=== PATIENT | female | born 1945 | race Caucasian/White ===

== ENCOUNTER → 2017-09-17 | Outpatient (CLI) | payer MEDICARE, BC ==
[~2017-09-17] MED LIST: ASPI-781 PO; PARO40TA79 PO; SIMV20TA2 PO; ZOLP10TA PO
--- NOTE | 2017-09-18 04:26 | HKNOTE ---
DATE OF SERVICE: 09/17/2017 MAIN COMPLAINT: Pain in the left hip. HISTORY OF MAIN COMPLAINT: The patient is a 72-year-old female who underwent a right total hip repl acement performed by me 10 years ago. She has had absolutely no problem with the hip, it feels comp letely normal. She is totally delighted with the results of the surgery. She underwent a left total hip replacement on 11/18/2015. Everything was going along perfectly well until she developed pain in the hip spontaneously about 2 months ago. She has not had any recent h istory of infection. 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 She saw Dr. Wen and Dr. Gela maravilla. There was a suggestion that she might need surgery to her cervical spine, which she declined . The pain in the left hip is localized over the left greater trochanter. There is no radiation to th e groin. She gets pain with every step that she takes. She cannot lie on her left side and she can not lie on her right side without a pillow between her legs. She has difficulty with stairs. She g ets pain with every step that she takes. PHYSICAL EXAMINATION GENERAL: The patient is fit looking 72-year-old female. She comes in with her . VITAL SIGNS: Height 5 feet 2 inches, weight 170 pounds, blood pressure 130/65, temperature 98.5. GAIT: Patient's gait is antalgic. EXAMINATION OF THE RIGHT HIP: A full range of motion without pain. EXAMINATION OF THE LEFT HIP: A full range of motion without pain. Marked tenderness over the left greater trochanter. IMAGING: Plain x-rays of the pelvis and hips obtained today at the [facility] we re reviewed. Both hip replacements appear to be well attached to the bone and well aligned. Not th e slightest suggestion of any underlying pathologic problem. DIAGNOSES: 1. Status post bilateral hip replacements. 2. Trochanteric bursitis of the left hip. MANAGEMENT: Under sterile conditions, given injection of 2 mL of Kenalog and 6 mL of 2% lidocaine i nto the trochanteric bursa. She will be seen again as necessary for further evaluation and treatment. Note that the nature of t rochanteric bursitis was discussed with her and her in a fair amount of detail. They unders tand it is not related to the hip replacements and the causation is unknown and that it should event ually settle down. Dictated By: DINAH BOWMAN/BRIANNE Conf#: [id number] DID#: [id number]
--- NOTE | 2017-09-18 13:05 | RADRPT ---
PROCEDURE: XR Left Hip and pelvis. CLINICAL INDICATION: Left hip pain. Pelvic pain. TECHNIQUE: Two views. Frontal pelvis and lateral left hip. COMPARISON: 05/16/2016. FINDINGS: There are bilateral total hip arthroplasties which appears satisfactory. There is no fracture, dislo cation, or loosening. The soft tissues are normal. There is no lytic or blastic lesion. There are degenerative changes of the lower lumbar spine. IMPRESSION: 1. Satisfactory postoperative appearance of both hips. RPTAT: QQ .Karl Perez MD, MD Date Time Electronically viewed and signed by .Karl Perez MD, MD on 09/18/2017 13:05 .R/
== END | disposition home or self-care (01) ==
LOC: HKI 11:25
DX: M70.62 Trochanteric bursitis, left hip (principal); Z96.643 Presence of artificial hip joint, bilateral
CPT/HCPCS: 20610; 73502; G0463

== ENCOUNTER → 2018-05-19 | Outpatient (CLI) | END | disposition home or self-care (01) ==